=== PATIENT | female | born 1985 | race Asian ===

== ENCOUNTER 2018-01-11 08:46 | Emergency (ER) | payer OTHER | END 2018-01-11 09:34 | disposition home or self-care (01) | LOC: M ED 08:46 | DX: S20.212A Contusion of left front wall of thorax, initial encounter (principal); S39.011A Strain of muscle, fascia and tendon of abdomen, initial encounter; W22.8XXA Striking against or struck by other objects, initial encounter; Y92.89 Other specified places as the place of occurrence of the external cause; F17.210 Nicotine dependence, cigarettes, uncomplicated; Z88.0 Allergy status to penicillin; Z88.8 Allergy status to other drugs, medicaments and biological substances; Z88.5 Allergy status to narcotic agent | CPT/HCPCS: 99283 ==